=== PATIENT | female | born 1945 | race Caucasian/White ===

== ENCOUNTER → 2017-04-20 | Outpatient (CLI) | payer MEDICARE, OTHER ==
[2017-04-20 12:58] LABS: HEMATOCRIT 39.7 % (37.0-47.0); HEMOGLOBIN 13.4 g/dl (12.5-16.0); MEAN CELL VOLUME 92 fl (80.0-100.0); MEAN CORPUSCULAR HEMOGLOBIN 31 pg (27.0-31.0); MEAN CORPUSCULAR HGB CONC 34 g/dl (33.0-37.0); MEAN PLATELET VOLUME 10.4 fl (7.4-10.4); PLATELET COUNT 194 K/mm3 (130-400); RED BLOOD COUNT 4.31 M/mm3 (4.10-5.30); WHITE BLOOD COUNT 6.6 K/mm3 (4.8-10.8)
[2017-04-20 13:22] LABS: ERYTHROCYTE SEDIMENTATION RATE 15 mm/hr (0-30)
== END ==
LOC: COL.LAB 12:39
PROVIDERS: Orthopaedic Surgery
DX: M54.5 Low back pain (principal); M79.661 Pain in right lower leg